=== PATIENT | female | born 1960 | race Caucasian/White ===

== ENCOUNTER → 2023-09-28 06:05 | Outpatient (REF) | payer BC, SELFPAY ==
[2023-09-28 09:41] LABS: Urine Albumin Negative (Neg - Trace); Urine Bilirubin Negative (Negative); Urine Character Clear (Clear); Urine Color Yellow; Urine Glucose Negative (Negative); Urine Ketone Negative (Negative); Urine Leukocyte Trace (Negative); Urine Nitrite Negative (Negative); Urine Occult Blood Negative (Negative); Urine Specific Gravity 1.015 (<1.030); Urine Urobilinogen Negative (Neg - 1+)
[2023-09-28 09:43] LABS: % Basophils 0.7 % (0-2); % Eosinophils 2.8 % (0-6); % Immature Granulocytes 0.3 % (0-0.5); % Lymphocytes 43.6 % (20.5-51.1); % Monocytes 7.8 % (1.7-9.3); % Neutrophils 44.8 % (42.2-75.2); Absolute Eosinophils 0.2 10^3/uL (0-0.7); Absolute Lymphocytes 2.6 10^3/uL (1.2-3.4); Absolute Monocytes 0.5 10^3/uL (0.1-0.6); Absolute Neutrophils 2.7 10^3/uL (1.4-6.5); Hematocrit 39.5 % (37.0-47.0); Hemoglobin 12.9 g/dL (12.0-16.0); Mean Corp Hgb Conc. 32.7 g/dL (33.0-37.0); Mean Corpuscular Hgb 27.6 pg (27.0-31.0); Mean Corpuscular Volume 84.4 fL (81.0-99.0); Mean Platelet Volume 9.8 fL (7.4-10.4); Nucleated Red Blood Cells % 0 %; Platelet Count 255 10^3/uL (130-400); Red Blood Cell Count 4.68 10^6/uL (4.20-5.40); Red Cell Dist. Width 13.8 % (11.5-14.5); White Blood Cell Count 6.1 10^3/uL (4.8-10.8)
[2023-09-28 10:37] LABS: Urine Red Blood Cell 0-2 /HPF (0-2)
[2023-09-28 10:56] LABS: ALT (SGPT) 22 U/L (0-35); AST (SGOT) 29 U/L (14-36); Albumin 4.3 g/dl (3.5-5.0); Alkaline Phosphatase 83 U/L (38-126); Blood Urea Nitrogen 12 mg/dl (7-17); Calcium 9.5 mg/dl (8.4-10.2); Carbon Dioxide 28 mmol/L (22-30); Chloride 105 mmol/L (98-107); Glucose 99 mg/dl (70-99); HDL Cholesterol 84 mg/dl; LDL Cholesterol, Calculated 117 mg/dl; Potassium 4.3 mmol/L (3.5-5.1); Sodium 138 mmol/L (135-145); Total Bilirubin 0.6 mg/dl (0.2-1.3); Total Cholesterol 239 mg/dl (50-199); Triglyceride 193 mg/dl (10-149); Very Low Density Lipoprotein 38 mg/dl (0-30); eGFR > 60.00
[2023-09-28 11:04] LABS: Vitamin D, 25-OH*** 56.6 ng/mL (30-80)
== END ==
LOC: HWLAB 06:05
PROVIDERS: ATTENDING PHYSICIAN Internal Medicine Geriatric Medicine
DX: E78.2 Mixed hyperlipidemia (principal); Z23 Encounter for immunization; Z01.419 Encounter for gynecological examination (general) (routine) without abnormal findings
CPT/HCPCS: 36415; 80053; 80061; 81003; 81015; 82306; 85025

== ENCOUNTER → 2023-10-12 11:24 | Outpatient (REF) | payer BC, SELFPAY ==
[2023-10-14 22:11] LABS: Angiotensin-1-converting Enzym 61 U/L (16-85)
== END ==
LOC: HWLAB 11:24
PROVIDERS: ATTENDING PHYSICIAN Internal Medicine Geriatric Medicine
DX: E78.2 Mixed hyperlipidemia (principal); I11.9 Hypertensive heart disease without heart failure; E55.9 Vitamin D deficiency, unspecified; K21.9 Gastro-esophageal reflux disease without esophagitis; M79.7 Fibromyalgia; D86.9 Sarcoidosis, unspecified; K58.9 Irritable bowel syndrome, unspecified; K76.0 Fatty (change of) liver, not elsewhere classified; Z13.89 Encounter for screening for other disorder; M41.25 Other idiopathic scoliosis, thoracolumbar region
CPT/HCPCS: 36415; 82164

== ENCOUNTER → 2023-10-19 16:04 | Outpatient (REF) | payer BC, SELFPAY | LOC: WDC 16:04 | PROVIDERS: ATTENDING PHYSICIAN Obstetrics & Gynecology Gynecology; FAMILY PHYSICIAN Internal Medicine Geriatric Medicine | DX: Z12.31 Encounter for screening mammogram for malignant neoplasm of breast (principal) | CPT/HCPCS: 77063; 77067 ==

== ENCOUNTER → 2024-01-08 10:49 | Outpatient (REF) | payer BC, SELFPAY | LOC: MRI 3T 10:49 | PROVIDERS: ATTENDING PHYSICIAN Specialist; FAMILY PHYSICIAN Internal Medicine Geriatric Medicine | DX: K86.2 Cyst of pancreas (principal) | CPT/HCPCS: 74183; A9575 ==

== ENCOUNTER → 2024-10-23 08:10 | Outpatient (REF) | payer BC, SELFPAY | LOC: WDC 08:10 | PROVIDERS: ATTENDING PHYSICIAN Obstetrics & Gynecology Gynecology; FAMILY PHYSICIAN Internal Medicine Geriatric Medicine | DX: Z12.31 Encounter for screening mammogram for malignant neoplasm of breast (principal) | CPT/HCPCS: 77063; 77067 ==

== ENCOUNTER 2024-12-02 08:50 | Emergency (ER) | payer BC, SELFPAY ==
[2024-12-02 08:54] VITALS: BP 95/74
[2024-12-02 09:24] VITALS: BMI 27.7
--- NOTE | 2024-12-02 09:57 | ED.GENMED ---
History of Present Illness
General
Chief Complaint: Musculo-Skeletal Complaint
Source: patient
Exam Limitations: none
Time Seen by Provider: 12/02/24 09:17
Nursing documentation reviewed up to this point in time: agreed with
History of Present Illness
History of Present Illness:
64-year-old female past medical history of hypertension hyperlipidemia, GERD, pancreatitis presenting to the emergency department today with concerns of left-sided knee discomfort after twisting her knee feeling sharp pain trouble ambulating since
last night. Ongoing difficulty ambulating today. Denies numbness weakness
Review of Systems
Review of Systems
Allergies reviewed?: Yes
All Other Systems: ROS reviewed and negative except as documented in HPI and ROS
Phy Exam
Physical Exam
Physical Exam:
GENERAL: Alert , in no apparent distress
EYE: pupils equal and reactive
NECK: Supple, no significant adenopathy.
ENT: o/p clr, mmm.
CARDIAC: Regular rate and rhythm .
LUNGS: Clear breath sounds bilaterally, no acute respiratory distress, no wheezes/rales/rhonchi
ABDOMEN: Soft, without focal tenderness, no r/g, no cvat
NEUROLOGICAL: Alert and oriented, no focal neuro deficits
SKIN: Warm and dry, skin intact.
MUSCULOSKELETAL: Discomfort today with all range of motion and laxity movements however no joint laxity specifically vague swelling surrounding the left knee increased discomfort with all flexing and extending
PSYCH: Normal and appropriate interaction.
Course
Orders/Labs/Results
Orders:
Orders
12/02/24 08:56
Knee, Left 4 or More Views [CR Knee - Left 4 Or More View*] Urgent
Comment:
Reason For Exam: pain, injury
12/02/24 09:56
Crutches-Treatment ONCE
Knee Immobilizer Left-Treatmen ONCE
12/02/24 10:07
Lower Ext Left wo Contrast CT [CT Lower Ext W/o Iv Cont Lt] Urgent
Comment:
Reason For Exam: knee tibial fx
12/02/24 11:27
Acetaminophen [Tylenol] 1,000 mg PO NOW STA
Vital Signs
Initial and Last Documented VS:
Initial Vital Signs
Temp Pulse Resp BP Pulse Ox
99.5 F 113 16 95/74 10
12/02/24 08:54 12/02/24 08:54 12/02/24 08:54 12/02/24 08:54 12/02/24 08:54
Last Documented Vital Signs
Temp Pulse Resp BP Pulse Ox
99.5 F 113 16 95/74 10
12/02/24 08:54 12/02/24 08:54 12/02/24 08:54 12/02/24 08:54 12/02/24 08:54
MDM/Problems Addressed
MDM/Problems Addressed:
64-year-old female presenting to the emergency department today with concerns of left knee discomfort since yesterday after twisting awkwardly. Difficulty ambulating today. Does have vague swelling. X-ray showing potential fracture of tibial
plateau as well as proximal fibula. Case discussed with Ortho recommending CT scan for further assessment. CT scan confirming fracture described as acute split depression type fracture of the lateral tibial plateau. Also extension intra-articular
into the medial tibial plateau. Also fibular head fracture. Case discussed with orthopedics recommending close follow-up with Dr. Erik Knox.
*Critical Care Note
Total Time (30-74mins, 75-104mins- exclusive of procedures): Not Applicable
ED Attending Note
-
Portions of this chart may have been created with voice recognition software.� Occasional wrong word or��sound alike� substitutions may have occurred due to the inherent limitations of voice recognition software.
Discharge Plan
Departure
Patient Disposition: Home (Routine Discharge)
Date of Disposition: 12/02/24
Time of Disposition: 12:51
Patient with high blood pressure during this ER visit?: No
Condition: Good
Covid-19: Not Applicable
Discharge Problem:
Fracture of tibial plateau, Fibula fracture
Instructions: Lower leg fracture
Prescriptions:
No Action
famotidine 40 MG tablet
40 mg PO DAILY
cyanocobalamin (vitamin B-12) 1,000 MCG tablet
1,000 mcg PO DAILY
pantoprazole 40 MG tablet,delayed release (DR/EC)
40 mg PO DAILY
montelukast 10 MG tablet
10 mg PO QPM
candesartan 8 MG tablet
8 mg PO DAILY
rosuvastatin 5 MG tablet
5 mg PO QPM
cholecalciferol (vitamin D3) 1,000 UNITS tablet
1,000 units PO DAILY
Bifidobacterium infantis [Align (B.infantis)] 4 MG capsule
4 mg PO DAILY
polyethylene glycol 3350 17 GRAMS powder in packet
17 grams PO DAILY Qty: 10 0RF
Rx Instructions:
Use if no BM > 24h
OTC, no Rx given/needed
tramadol 50 MG tablet
50 mg PO Q6HPRN PRN (Reason: moderate pain, reinier po) Qty: 20 0RF
Rx Instructions:
can increase to 2 tab every 6h for severe pain
aspirin 81 MG tablet,chewable
81 mg PO Q48H Qty: 0 0RF
Rx Instructions:
hold for next 3-5days
Referrals:
Jeffrey Knox MD [Non-Admitting Privileges] - Follow up in 2-3 days
Ismael Velazquez MD [Family Provider] -
Activity Restrictions/Additional Instructions:
You came to the emergency department today with concerns of knee discomfort. You are found to have a fracture of your tibia and proximal fibula. Please wear the knee immobilizer and be nonweightbearing until orthopedic follow-up. Return for any
worsening, new or concerning symptoms.
Interventions
Interventions:
*Risk Screen - Suicide Last Done: 12/02/24 09:15
*General Assessment Last Done: 12/02/24 09:15
*Neglect/Abuse Screening Last Done: 12/02/24 09:15
*ED- Fall Risk Assessment Last Done: 12/02/24 09:15
*ED COVID-19 Vaccine History Last Done: 12/02/24 09:15
ED-Musculoskeletal Assessment Last Done: 12/02/24 09:15
Discharge Date and Time
Print Language: NIUEAN
[2024-12-02] MEDS: TYLENOL 1000 MG PO (11:31)
[2024-12-02 14:01] VITALS: BP 136/60
== END 2024-12-02 15:28 | disposition home or self-care (01) ==
LOC: EMR 08:50
PROVIDERS: EMERGENCY PHYSICIAN Emergency Medicine; FAMILY PHYSICIAN Internal Medicine Geriatric Medicine
DX: S82.142A Displaced bicondylar fracture of left tibia, initial encounter for closed fracture (principal); S82.832A Other fracture of upper and lower end of left fibula, initial encounter for closed fracture; X50.1XXA Overexertion from prolonged static or awkward postures, initial encounter; I10 Essential (primary) hypertension; E78.5 Hyperlipidemia, unspecified
CPT/HCPCS: 29505; 99283; 73564; 73700

== ENCOUNTER → 2025-06-11 06:56 | Outpatient (REF) | payer BC, SELFPAY | LOC: HWRCS 06:56 | PROVIDERS: ATTENDING PHYSICIAN Internal Medicine Geriatric Medicine | DX: R93.1 Abnormal findings on diagnostic imaging of heart and coronary circulation (principal) | CPT/HCPCS: 78452; 93017; A9500; J2785 ==

== ENCOUNTER → 2025-06-18 09:34 | Outpatient (REF) | payer BC, SELFPAY | LOC: EMG 09:34 | PROVIDERS: ATTENDING PHYSICIAN Internal Medicine Rheumatology; FAMILY PHYSICIAN Internal Medicine Geriatric Medicine | DX: G57.93 Unspecified mononeuropathy of bilateral lower limbs (principal); R20.0 Anesthesia of skin | CPT/HCPCS: 95886; 95910 ==